=== PATIENT | male | born 1975 | race Caucasian/White ===

== ENCOUNTER 2017-02-13 17:30 | Emergency (ER) | payer BC, OTHER ==
[~2017-02-13] VITALS: Ht 198.1 cm; Wt 80.2 kg
[2017-02-13 17:34] VITALS: TEMP 36.7; Ht 198.1 cm; Wt 80.2 kg
[2017-02-13] MEDS ORDERED: RABIES IMMUNE GLOBULIN (HUMAN) 150 INTER.UNIT/ML 2 ML VIAL IM. ONE (18:00)
[2017-02-13] MEDS ORDERED: RABIES VACCINE (IMOVAX) HUMAN DIPL CELL 2.5 INTER.UNIT/ML SYR IM. ONE (18:00)
[2017-02-13 19:56] VITALS: BP 131/89; PULSE 55; O2SAT 98
--- NOTE | 2017-02-14 01:04 | EMERGENCY ROOM VISIT NOTE ---
ED Visit Note First contact with patient: 17:37 CHIEF COMPLAINT: Possible rabies exposure. HISTORY OF PRESENT ILLNESS: Mr. Landeros is a 41-year-old white male who ambulates into the ED accompanied by his . Patient report approximately 2 AM this morning, a proximally 14 hours ago, he sleep and and was awoken from sleep his son who is screaming in his bedroom. He went to their son they noted that there was a bat sitting on the pillow beside their son. He attempted to capture the bat but was unsuccessful and a took flight and started flying in other bedrooms. He went to get something to capture the bat and when he returned the bat went into his other son's bedroom he found the bat sitting/lying in a cardboard box. He covered the box and took about out of the house and released it. This morning he contacted the Department of Health who recommended that he have his son brought into the ED for assessment and rabies prophylaxis. While in the ED I did recommend that the patient and his also consider receiving rabies prophylaxis and the patient agreed. Patient reports during exposure to the bat he did not receive any bites and has not noted any injuries consistent with bat bites. Patient and father denies fevers, chills, sweats, headaches, neck pain, joint pain, shortness of breath, cough, upper respiratory tract symptoms, abdominal pain, decreased appetite, nausea, vomiting. REVIEW OF SYSTEMS: As noted above in History of Present Illness. 8 body systems were reviewed with this patient and found to be negative unless noted above otherwise. PMH: Patient denies. CURRENT MEDICATION: A shunt denies.. ALLERGIES TO MEDICATION: Patient denies. SOCIAL HISTORY: Patient is a currently employed; he lives with his family and feels safe in his home environment; he denies tobacco use. TETANUS IMMUNIZATION STATUS: Patient reports up-to-date. PHYSICAL EXAM: Vital Signs: Date Time Temp Pulse Resp B/P (MAP) Pulse Ox O2 Delivery O2 Flow Rate FiO2 02/13/17 19:56 55 18 131/89 98 02/13/17 17:34 36.7 58 18 125/81 97 Room Air GENERAL: 41-year-old white male in no acute distress, nontoxic-appearing, afebrile and hemodynamically stable. NEUROLOGICAL: Awake, alert and oriented to person, place and place. Answering questions appropriately and following commands. Normal gait. Good hand eye coordination. No focal motor or sensory deficits. SKIN: Warm, dry and pink. No obvious sign of bat injury EMERGENCY DEPARTMENT COURSE: Patient is assessed as noted above. Patient was given 1,604 units of rabies immunoglobulin IM and 2.5 inter units of rabies vaccination IM. After his immunizations he was observed for approximately 15-20 minutes and had no apparent side effects. Patient were educated about today's findings and instructed on his treatment plan; they verbalized understanding and agreement with this plan. CLINICAL IMPRESSION: Post exposure rabies prophylaxis. DISPOSITION: Patient discharged to home in stable condition. PLAN: Patient were educated on symptoms of rabies and side effect of rabies immunizations. Patient was given a schedule for his additional rabies immunization series. Patient was encouraged to return the ED for any symptoms of rabies or side effects of rabies immunizations. Patient was encouraged return to the ED for his additional rabies prophylaxis injections.
== END 2017-02-13 19:56 | disposition home or self-care (01) ==
LOC: C.EDB 17:32 → C.EDD 19:56
DX: Z20.3 Contact with and (suspected) exposure to rabies (principal); Z23 Encounter for immunization

== ENCOUNTER 2017-02-16 08:23 | Emergency (ER) | payer BC ==
[~2017-02-16] VITALS: Ht 198.1 cm; Wt 82.8 kg
[2017-02-16 08:36] VITALS: TEMP 36.5; Ht 198.1 cm; Wt 82.8 kg
[2017-02-16] MEDS ORDERED: RABIES VACCINE (IMOVAX) HUMAN DIPL CELL 2.5 INTER.UNIT/ML SYR IM. ONE (09:00)
--- NOTE | 2017-02-16 09:06 | EMERGENCY ROOM VISIT NOTE ---
ED Visit Note First contact with patient: 08:41 Chief Complaint: Rabies Return Visit History of Present Illness: This patient is a 41-year-old male who presents to the Emergency Department via private vehicle for their second Rabies Vaccination Injections. The patient reports that they had no reaction to previous injection. Patient denies the development of any fevers, chills, sweats, or URI symptoms. Medications: Unchanged from previous visit. Allergies: None PMH: Unchanged from previous visit. SHx: Patient lives locally ROS: All pertinent positive and negative review of systems are appropriately documented in the History of Present Illness. Physical Exam: VITAL SIGNS - Vital signs and Nursing Notes were reviewed. GENERAL -41-year-old male, well-developed, well-nourished, and in no acute distress. SKIN - Without rashes or lesions. CARDIAC - RRR with normal S1 & S2. No murmurs, rubs, or gallops appreciated. RESPIRATORY - Clear to auscultation bilaterally. No wheezes, rales, or rhonchi appreciated. NEURO - Patient is alert and oriented and communicates appropriately with the provider. ED Course: Previous ED visit note was reviewed by myself prior to patient evaluation. Patient reports no reaction to the previous injection(s). Patient received 2.5 IU of Imovax intramuscularly. Patient was observed in the Emergency Department for greater than 20 minutes prior to discharge without signs of reaction. Patient was educated on worrisome symptoms for return visit to the Emergency Department. Patient discharged to home with the intent for follow-up in the Emergency Department as scheduled for the remainder of their injections. Current/Historical Medications No Active Prescriptions or Reported Meds Allergies Coded Allergies: No Known Allergies (Unverified , 02/13/17) Vital Signs Date Time Temp Pulse Resp B/P (MAP) Pulse Ox O2 Delivery O2 Flow Rate FiO2 02/16/17 09:56 63 18 114/72 96 Room Air 02/16/17 08:36 36.5 64 18 109/75 94 Room Air Medications Administered Medications (Trade) Dose Ordered Sig/Calvin Route Start Time Stop Time Status Last Admin Dose Admin Rabies Vaccine Human Diploid Cell (Imovax Rabies) 2.5 interunit ONCE ONCE IM. 02/16/17 09:00 02/16/17 09:01 DC 02/16/17 09:57 2.5 INTERUNIT Departure Information Impression Primary Impression: Encounter for repeat administration of rabies vaccination Dispostion Home / Self-Care Condition GOOD Prescriptions No Active Prescriptions or Reported Meds Referrals Olaf Watson M.D. (PCP) Patient Instructions My [facility] Additional Instructions Discharge Instructions: You were seen in the Emergency Department today for your Rabies Prophylaxis Injection. You should continue to follow the Discharge Instructions outlined for you in your initial Emergency Department visit. For pain or fever control, you can use the following [id number] medicines (if >12 yo): - Regular strength (325mg/tab) Tylenol (acetaminophen) 2 tabs every 4-6 hours as needed. Do not exceed 12 tablets in a 24 hour period. Avoid taking more than 3 grams (3000 mg) of Tylenol per day. This includes any other sources of acetaminophen you may take on a regular basis. - Regular strength (200 mg/tab) Advil (ibuprofen) 1-2 tabs every 4-6 hours as needed. Do not exceed a dose of 3200 mg per day. Return to the emergency department if your symptoms worsen despite treatment course outlined above.
[2017-02-16 09:56] VITALS: BP 114/72; PULSE 63; O2SAT 96
== END 2017-02-16 10:10 | disposition home or self-care (01) ==
LOC: C.EDB 08:25
DX: Z20.3 Contact with and (suspected) exposure to rabies (principal); Z23 Encounter for immunization

== ENCOUNTER 2017-02-20 16:26 | Emergency (ER) | payer BC ==
[~2017-02-20] VITALS: Ht 198.1 cm; Wt 81.8 kg
[2017-02-20 16:39] VITALS: BP 121/76; PULSE 62; TEMP 36.6; O2SAT 95; Ht 198.1 cm; Wt 81.8 kg
[2017-02-20] MEDS ORDERED: RABIES VACCINE (IMOVAX) HUMAN DIPL CELL 2.5 INTER.UNIT/ML SYR IM. ONE (16:45)
--- NOTE | 2017-02-20 16:48 | EMERGENCY ROOM VISIT NOTE ---
ED Visit Note First contact with patient: 16:39 CHIEF COMPLAINT: Rabies prophylaxis HISTORY OF PRESENT ILLNESS: This 41-year-old male patient presents to the emergency department ambulatory for their third rabies shot. The patient has not had any complications from the previous injections. They deny any other complaints. REVIEW OF SYSTEMS: A 6 system review of systems was completed with positives and pertinent negatives listed in the HPI. ALLERGIES: No known drug allergies MEDICATIONS: Unchanged. PMH: Unchanged from previous visit. PHYSICAL EXAM: Vital Signs: Reviewed Nurse's notes, vital signs stable. GENERAL : This is a 41-year-old male, in no acute distress, well-developed, well- nourished. HEAD: Atraumatic, without temporal or scalp tenderness. EYES: PERRLA, EOMI, no discharge or injection. SKIN: Normal. NEUROLOGICAL: Alert and cooperative. Sensory and motor functions grossly intact. EMERGENCY DEPARTMENT COURSE: I examined the patient. The patient was given Imovax 1ml IM. The patient was observed for 20 minutes with no reaction. The patient was discharged home in stable condition. DIAGNOSIS: Rabies prophylaxis DISCHARGE INSTRUCTIONS: Continue vaccination schedule as directed. Return for any complications. Current/Historical Medications No Active Prescriptions or Reported Meds Allergies Coded Allergies: No Known Allergies (Unverified , 02/13/17) Vital Signs Date Time Temp Pulse Resp B/P (MAP) Pulse Ox O2 Delivery O2 Flow Rate FiO2 02/20/17 16:39 36.6 62 16 121/76 95 Room Air Medications Administered Medications (Trade) Dose Ordered Sig/Calvin Route Start Time Stop Time Status Last Admin Dose Admin Rabies Vaccine Human Diploid Cell (Imovax Rabies) 2.5 interunit ONCE ONCE IM. 02/20/17 16:45 02/20/17 16:46 DC 02/20/17 17:06 2.5 INTERUNIT Departure Information Impression Primary Impression: Need for post exposure prophylaxis for rabies Dispostion Home / Self-Care Condition GOOD Prescriptions No Active Prescriptions or Reported Meds Referrals Olaf Watson M.D. (PCP) Patient Instructions My [facility] Additional Instructions Continue vaccination schedule as directed. Return for any complications.
== END 2017-02-20 17:27 | disposition home or self-care (01) ==
LOC: C.EDB 16:27 → C.EDD 17:27
DX: Z23 Encounter for immunization (principal); Z20.3 Contact with and (suspected) exposure to rabies

== ENCOUNTER 2017-02-27 15:58 | Emergency (ER) | payer BC ==
[~2017-02-27] VITALS: Ht 198.1 cm; Wt 81.3 kg
[2017-02-27 16:01] VITALS: BP 114/73; PULSE 59; TEMP 36.3; O2SAT 95; Ht 198.1 cm; Wt 81.3 kg
[2017-02-27] MEDS ORDERED: RABIES VACCINE (IMOVAX) HUMAN DIPL CELL 2.5 INTER.UNIT/ML SYR IM. ONE (16:15)
--- NOTE | 2017-03-01 10:44 | EMERGENCY ROOM VISIT NOTE ---
ED Visit Note First contact with patient: 16:04 CHIEF COMPLAINT: Rabies immunization. HISTORY OF PRESENT ILLNESS: Mr. Landeros is a 41-year-old white male who ambulates into the ED accompanied by his son requesting the last of his rabies immunization after being exposed to a bat flying around his house at night. He reports he's had no reactions to his previous immunizations and he is feeling well today. He denies fevers, chills, sweats, headaches, neck pain, joint pain, shortness of breath, cough, upper respiratory tract symptoms, abdominal pain, nausea, vomiting. REVIEW OF SYSTEMS: As noted above in History of Present Illness. 8 body systems were reviewed with this patient and found to be negative unless noted above otherwise. PMH: Patient denies. CURRENT MEDICATION: Patient denies. ALLERGIES TO MEDICATION: Patient denies. SOCIAL HISTORY: Patient is currently employed; he lives with his family and feels safe in his home environment; he denies tobacco and alcohol use. PHYSICAL EXAM: Vital Signs: Date Time Temp Pulse Resp B/P (MAP) Pulse Ox O2 Delivery O2 Flow Rate FiO2 02/27/17 16:01 36.3 59 18 114/73 95 Room Air GENERAL: 41-year-old white male in no acute distress, nontoxic-appearing, afebrile and hemodynamically stable. NEUROLOGICAL: Awake, alert and oriented to person, place and time. Answering questions appropriately and following commands. EMERGENCY DEPARTMENT COURSE: Patient is assessed as noted above. Patient was given 2.5 units of rabies immunization IM. Patient was educated about today's findings and instructed on his treatment plan ; he verbalized understanding and agreement with this plan. CLINICAL IMPRESSION: Post exposure rabies prophylaxis. DISPOSITION: Patient discharged to home in stable condition accompanied by his family; prior to discharge he was reassessed and reported that he felt the same. PLAN: Patient was educated on symptoms of rabies and side effect of rabies immunizations. Patient was encouraged to return the ED for any symptoms of rabies or side effects of rabies immunizations.
== END 2017-02-27 17:02 | disposition home or self-care (01) ==
LOC: C.EDB 15:59 → C.EDD 17:02
DX: Z20.3 Contact with and (suspected) exposure to rabies (principal); Z23 Encounter for immunization